=== PATIENT | male | born 1975 | race Caucasian/White ===

== ENCOUNTER 2017-06-22 08:11 | Emergency (ER) | payer SELFPAY ==
[~2017-06-22] VITALS: Ht 172.7 cm; Wt 73.0 kg
[2017-06-22] MEDS ORDERED: MORPHINE SULFATE 10 MG/ML CPJ IM ONE (09:00)
[2017-06-22] MEDS ORDERED: IBUPROFEN 600MG TABLET PO ONE (10:45)
[2017-06-22 11:28] VITALS: BP 132/70
== END 2017-06-22 11:32 | disposition home or self-care (01) ==
LOC: ER 08:33
DX: S16.1XXA Strain of muscle, fascia and tendon at neck level, initial encounter (principal); S00.33XA Contusion of nose, initial encounter; S39.012A Strain of muscle, fascia and tendon of lower back, initial encounter; S09.90XA Unspecified injury of head, initial encounter; V49.9XXA Car occupant (driver) (passenger) injured in unspecified traffic accident, initial encounter; Y93.89 Activity, other specified; Y99.8 Other external cause status; Y92.410 Unspecified street and highway as the place of occurrence of the external cause
CPT/HCPCS: 29105; 70450; 70486; 72100; 72125; 73080; 96372; 99284; J2270; A4565